=== PATIENT | male | born 1995 | race Caucasian/White ===

== ENCOUNTER 2016-08-26 19:35 | Emergency (ER) | payer OTHER ==
--- NOTE | 2016-08-26 19:42 | ER Document Report ---
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 Comprehensive ED assessment and evaluation of the patient, analysis of test results and completion of the medical decision making process will be conducted by additional ED providers.
--- NOTE | 2016-08-26 21:00 | ER Document Report ---
HPI - HPI Patient complains to provider of: swollen glands Pain Level: Denies Context: Patient is a 21-year-old male presents emergency Department complaining of swollen glands on the left side of his neck. Patient states that 2 days ago when he was in [place] he went to urgent care for this swelling along with swelling and tenderness to the knee was sent home with antibiotic and steroid pack. Patient has been taking medications as prescribed so has a swelling in his neck he only started him yesterday. Patient states that he wants to have his temperature checked today which is only in the 99 region. Patient otherwise feels fine he is just worried about the swelling. Denies any pain. Denies any ear pain, dysphasia, nasal drainage, sinus congestion, muffled speech , mouth odor, no drainage, any cough, chest congestion, nausea or vomiting. There is a healthy 21-year-old male. - EENT EENT: REPORTS: Sore Throat - CARDIOVASCULAR Cardiovascular: DENIES: Chest pain - REPRODUCTIVE Reproductive: DENIES: :, Postmenopausal, Abnormal bleeding / discharge - DERM Skin Color: Normal, [place] Skin Problems: None - NURSING COMMENTS Comment: pt to ed today for sore throat, pt is a&o x4, pleasant and cooperative with all care, respirations e/u, speech clear, color appropriate, nad ,vss Past Medical History - General Information source: Patient - Social History Smoking Status: Never Smoker Cigarette use (# per day): No Chew tobacco use (# tins/day): No Frequency of alcohol use: None Drug Abuse: None Family History: Reviewed & Not Pertinent Patient has suicidal ideation: No Patient has homicidal ideation: No Renal/ Medical History: Denies: Hx Peritoneal Dialysis Vertical Provider Document - CONSTITUTIONAL Agree With Documented VS: Yes Exam Limitations: No Limitations General Appearance: WD/WN, No Apparent Distress - INFECTION CONTROL TRAVEL OUTSIDE OF THE [place] IN LAST 30 DAYS: No - HEENT HEENT: Atraumatic, Normocephalic, PERRLA. negative: Pharyngeal Exudate, Pharyngeal Tenderness, Pharyngeal Erythema, Tympanic Membrane Red, Tympanic Membrane Bulging - NECK Neck: Lymphadenopathy-Left - Nontender, Other - Visible lymphadenopathy along the left anterior chain. negative: Lymphadenopathy-Right - RESPIRATORY Respiratory: Breath Sounds Normal, No Respiratory Distress, Chest Non-Tender O2 Sat by Pulse Oximetry: 99 - CARDIOVASCULAR Cardiovascular: Regular Rate, Regular Rhythm, No Murmur Pulses: Normal: Radial - NEURO Level of Consciousness: Awake, Alert, Appropriate Motor/Sensory: No Motor Deficit, No Sensory Deficit - DERM Integumentary: Warm, Dry, No Rash Course - Re-evaluation Re-evalutation: 08/26/16 20:55 Patient is a 21-year-old male who is hemodynamically stable, no acute distress and afebrile. Patient's history, physical exam and negative rapid strep sent for questionable diagnosis of a viral syndrome. Considering that he is ready started taking the antibiotics and steroids he should complete the course and follow-up with his provider at [facility]. - Vital Signs Vital signs: Temp Pulse Resp BP Pulse Ox 97.9 F 65 16 136/76 H 99 08/26/16 19:40 08/26/16 19:40 08/26/16 19:40 08/26/16 19:40 08/26/16 19:40 Discharge - Discharge Clinical Impression: Lymphadenopathy Condition: Good Disposition: HOME, SELF-CARE Additional Instructions: Please continue to take your antibiotic and steroids as prescribed Please return if you have any worsening fever that does not respond to any Tylenol or Motrin. Please be sure [place] complaints today.
[2016-08-26 21:11] VITALS: BP 130/66
== END 2016-08-26 21:10 | disposition home or self-care (01) ==
LOC: ER 19:35
DX: R59.1 Generalized enlarged lymph nodes (principal)
CPT/HCPCS: 87070; 87880; 99283